=== PATIENT | female | born 1975 | race Hispanic/Latino ===

== ENCOUNTER 2021-06-11 23:16 | Emergency (ER) | payer OTHER ==
--- OUTSIDE RECORDS SUMMARY | 2021-06-11 23:19 | XMS REPORT | Continuity of Care Document ---
:1975 Author Organization [facility] t Address [address] [place] [address] Care Team Providers Name Role Phone Unavailable Unavailable Unavailable Problems Condition Condition Condition Status Onset Resolution Last Treating Co mments Source Name Details Category Date Date Treatment Clinician Date Pain, Pain, Problem Active [facility], left knee, left Me moria [facility] Primary Primary Diagnosis [facility] left knee left knee [facility] Primary Primary Problem Active [facility] oste[facility] osteoarthr Antonella kes - [facility] right knee right knee [facility] Allergies, Adverse Reactions, Alerts This patient has no known allergies or adverse reactions. Medications This patient has no known medications. Procedures This patient has no known procedures. Encounters Start End Encounter Admission Attending Care Care Encounter Source Date/Time Date/Time Type Type Clinicians Facility Department ID 2019-01-23 2019-01-23 Outpatient Kay Roberson [id number] [facility] 15:[facility]00 15[facility] ent Clinics 2019-01-16 2019-01-16 Outpatient Kay Roberson [id number] [facility] 15:30:00 15:30:00 [facility] ent [facility] 2019-01-09 2019-01-09 Outpatient Kay Roberson [id number] [facility] 15:00:00 15:00:00 t [facility] ent [facility] Results This patient has no known results.
[2021-06-12] MEDS ORDERED: ACETAMINOPHEN 500 MG TAB ONE (00:29)
[2021-06-12] MEDS ORDERED: NA CHLORIDE 0.9% 1,000 ML ONE (00:38)
[2021-06-12 00:48] LABS: Absolute Lymphocytes (CBC) 0.4 K/uL (0.7-4.9); Basophils % 0.3 % (0-1.3); Hematocrit 33.2 % (36.0-45.0); Lymphocytes % 7.4 % (15.3-44.8); RBC Red Blood Cell Count 5.21 M/uL (3.86-4.86)
[2021-06-12 00:51] LABS: Protime INR 1.04
[2021-06-12] MEDS ORDERED: NA CHLORIDE 0.9% 50 ML ONE (01:00)
[2021-06-12] MEDS ORDERED: CEFTRIAXONE 1000 MG/VIAL ONE (01:00)
[2021-06-12 01:12] LABS: Urine Blood 3+ (Negative); Urine Glucose Negative (Negative); Urine Protein 3+ (Negative); Urine Specific Gravity 1.025 (1.005-1.030)
[2021-06-12 01:20] LABS: AST/SGOT 47 U/L (15-37); BUN Blood Urea Nitrogen 10 mg/dL (7-18); Bicarbonate 22 mmol/L (21-32); Glucose Level 134 mg/dL (74-106); Potassium 3.9 mmol/L (3.5-5.1); Sodium Level 137 mmol/L (136-145)
[2021-06-12 01:21] LABS: ALT/SGPT 41 U/L (12-78); Albumin 2.4 g/dL (3.4-5.0); Alkaline Phosphatase 97 U/L (45-117); Amylase 54 U/L (25-115); Bilirubin Direct 0.1 mg/dL (0-0.2); Bilirubin Total 0.3 mg/dL (0.2-1.0); Creatine Phosphokinase 124 U/L (26-192); Lipase 193 U/L (73-393); Protein, Total 6.9 g/dL (6.4-8.2); Troponin (Emerg Dept Use Only) < 0.02 ng/mL (0.0-0.045)
[2021-06-12 01:33] LABS: Urine Bacteria >50 /HPF (<20); Urine Mucus 2+ /HPF (NONE SEEN); Urine RBC >50 /HPF (NONE SEEN)
[2021-06-12 01:34] LABS: Urine Amorphous Sediment 1+ /HPF (NONE SEEN); Urine Coarse Granular Casts FEW /LPF (NONE SEEN)
[2021-06-12 01:52] LABS: CKMB Creatine Kinase MB < 1.0 ng/mL (1.0-3.6)
[2021-06-12 01:56] LABS: Anisocytosis 2+; Blood Morphology Comment NOTED (NOT SEEN); Hypochromasia 1+; Macrocytosis 2+; Platelet Estimate ADEQ; White Blood Cell Scan OK (OK)
[2021-06-12 02:51] LABS: SARS-COV-2 RT PCR POSITIVE (NEGATIVE)
--- NOTE | 2021-06-12 02:53 | ER ---
Nurse's Notes [facility] Name: Mary Frey Age: 46 yrs Sex: Female : 1975 Arrival Date: 06/11/2021 Time: 23:19 Bed 13 Private MD: Diagnosis: Coronavirus infection, unspecified;Streptococcal pharyngitis Presentation: 06/11 23:57 Chief complaint: Patient states: she has been coughing since last week not feeling well bb tonight she was coughing so much she can't sleep has been taking OTC medications but it is not helping. Coronavirus screen: cough unrelated to allergies. Ebola Screen: No symptoms or risks identified at this time. Initial Sepsis Screen: Does the patient meet any 2 criteria? Temp <36.0*C (96.8*F)) or > 38.3*C (100.9*F). HR > 90 bpm. Yes Does the patient have a suspected source of infection? Yes: Productive cough/pneumonia. Risk Assessment: Do you want to hurt yourself or someone else? Patient reports no desire to harm self or others. Onset of symptoms was June 12, 2021. 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 - Social history:: Smoking status: Patient denies any tobacco usage or history of. Patient/guardian denies using alcohol, street drugs. Screenin:48 Abuse screen: Denies threats or abuse. Nutritional screening: No deficits noted. mk Tuberculosis screening: No symptoms or risk factors identified. Fall Risk None identified. Assessment: 01:04 General: Appears in no apparent distress. Behavior is calm, cooperative. Pain: Denies pain. Neuro: Level of Consciousness is awake, alert, obeys commands, Oriented to person, place, time, situation, Technician Trainee are equal bilaterally Gait is steady, Facial symmetry appears normal. Cardiovascular: Heart tones S1 S2 Capillary refill < 3 seconds fingers toes Pulses are 2+ in right radial artery, right dorsalis pedis artery, left radial artery and left dorsalis pedis artery Rhythm is sinus tachycardia. Cardiovascular: Rhythm is sinus rhythm. Respiratory: Airway is patent Trachea midline Respiratory effort is even, unlabored, Respiratory pattern is regular, symmetrical, tachypnea Breath sounds are clear. Respiratory: Onset: The symptoms/episode began/occurred reports being sick for \R\1 week but worse cough tonight so much so that she could not sleep. GI: Abdomen is flat, non-distended, Patient currently denies abdominal pain, vomiting. : No signs and/or symptoms were reported regarding the genitourinary system. Derm: Skin is intact, is healthy with good turgor, Skin is Skin is pink, warm \T\ dry. Skin temperature is hot. Musculoskeletal: Range of motion: intact in all extremities. 02:24 Reassessment: Patient appears in no apparent distress at this time. Patient and/or mk family updated on plan of care and expected duration. Pain level reassessed. Patient is alert, oriented x 3, equal unlabored respirations, skin warm/dry/pink. Patient denies pain at this time. 03:30 Reassessment: Patient appears in no apparent distress at this time. Patient and/or mk family updated on plan of care and expected duration. Pain level reassessed. Patient is alert, oriented x 3, equal unlabored respirations, skin warm/dry/pink. Patient denies pain at this time. Patient states feeling better. Vital Signs: 06/11 23:57 BP 119 / 67; Pulse 117; Resp 20 S; Temp 101(O); Pulse Ox 95% on R/A; Weight 129.27 kg bb (R); Height 5 ft. 4 in. (162.56 cm) (R); 06/12 01:27 BP 129 / 77; Pulse 77; Resp 18; Pulse Ox 98% on R/A; mk 02:20 Pulse 97; Resp 30; Temp 99.4; Pulse Ox 96% on R/A; mk 03:46 BP 132 / 75; Pulse 82; Resp 18; Pulse Ox 99% on R/A; mk 06/11 23:57 Body Mass Index 48.92 (129.27 kg, 162.56 cm) Michell Coma Score: 01:27 Eye Response: spontaneous(4). Verbal Response: oriented(5). Motor Response: obeys commands(6). Total: 15. 02:20 Eye Response: spontaneous(4). Verbal Response: oriented(5). Motor Response: obeys mk commands(6). Total: 15. 03:46 Eye Response: spontaneous(4). Verbal Response: oriented(5). Motor Response: obeys mk commands(6). Total: 15. ED Course: 06/11 23:19 Patient arrived in ED. 06/12 00:04 Triage completed. bb 00:04 Arm band placed on Patient placed in an exam room, on a stretcher, on pulse oximetry. bb 00:07 Jose Carlos Braun NP is PHCP. pm1 00:07 Aleksey Garcia MD is Attending Physician. pm1 00:27 Agatha Nice, RN is Primary Nurse. mk 00:54 Chest Single View XRAY In Process Unspecified. EDMS 01:00 Inserted saline lock: 20 gauge in left antecubital area, using aseptic technique. mk 01:02 Patient has correct armband on for positive identification. Allergy band placed. Placed mk in gown. Bed in low position. Call light in reach. Side rails up X 1. 03:48 No provider procedures requiring assistance completed. mk 03:48 IV discontinued, intact, bleeding controlled, No redness/swelling at site. Administered Medications: 00:28 Drug: Tylenol 1000 mg Route: PO; bb 00:58 Drug: NS 0.9% (30 ml/kg) 30 ml/kg Route: IV; Rate: bolus; Site: left antecubital; 00:58 Drug: Rocephin (cefTRIAXone) 1 grams Route: IV; Rate: calculated rate; Site: left bb antecubital; 03:35 Drug: Zofran (Ondansetron) 4 mg Route: IVP; Site: left antecubital; Outcome: 02:53 Discharge ordered by . pm1 03:48 Discharged to home mk 03:48 Condition: stable 03:48 Discharge instructions given to patient, family. 03:49 Patient left the ED. mk Addendum: 06/15/2021 07:55 Addendum: Culture Results: Positive urine culture. No further action required. Bacteria i w sensitive to prescribed antibiotic. Signatures: Dispatcher [employer] Debbie Sheppard, RN RN bb Graciela Gallardo RN RN iw Jose Carlos Braun, SENIOR SALES ENGINEER SENIOR SALES ENGINEER pm1 Janine Mercer Madeline, RN RN mk
--- NOTE | 2021-06-12 02:54 | EDPHYS ---
Physician Documentation [facility] Name: Mary Frey Age: 46 yrs Sex: Female : 1975 Arrival Date: 06/11/2021 Time: 23:19 Bed 13 Private MD: ED Physician Aleksey Garcia HPI: 06/12 00:29 This 46 yrs old Female presents to ER via Ambulatory with complaints of Cough. pm1 00:29 The patient or guardian reports cough. Onset: The symptoms/episode began/occurred 10 pm1 day(s) ago. Severity of symptoms: in the emergency department the symptoms are actually worse. Modifying factors: The symptoms are alleviated by nothing, the symptoms are aggravated by nothing. Associated signs and symptoms: Pertinent positives: fever, shortness of breath, Pertinent negatives: chest pain, diarrhea, vomiting. The patient has not experienced similar symptoms in the past. The patient has not recently seen a physician. 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 - Social history:: Smoking status: Patient denies any tobacco usage or history of. Patient/guardian denies using alcohol, street drugs. ROS: 00:29 Eyes: Negative for injury, pain, redness, and discharge, ENT: Negative for injury, pm1 pain, and discharge, Cardiovascular: Negative for chest pain, palpitations, and edema. 00:29 Abdomen/GI: Negative for abdominal pain, nausea, vomiting, diarrhea, and constipation, Back: Negative for injury and pain, MS/Extremity: Negative for injury and deformity, Skin: Negative for injury, rash, and discoloration. 00:29 Constitutional: Positive for body aches, fever. 00:29 Respiratory: Positive for cough, Negative for shortness of breath, wheezing. 00:29 All other systems are negative. Exam: 00:29 Constitutional: This is a well developed, well nourished patient who is awake, alert, pm1 and in no acute distress. Head/Face: Normocephalic, atraumatic. 00:29 Back: No spinal tenderness. No costovertebral tenderness. Full range of motion. Skin: Warm, dry with normal turgor. Normal color with no rashes, no lesions, and no evidence of cellulitis. MS/ Extremity: Pulses equal, no cyanosis. Neurovascular intact. Full, normal range of motion. 00:29 Eyes: Exam is negative for acute changes, Extraocular movements: no acute changes, Conjunctiva: no acute changes, no injection, Sclera: no acute changes, icterus, is not appreciated. 00:29 Cardiovascular: Rate: tachycardic, actual rate is 115 bpm, Rhythm: regular, Pulses: no pulse deficits are appreciated, Heart sounds: normal, normal S1and S2, Edema: is not appreciated. 00:29 Respiratory: Exam negative for acute changes, respiratory distress, shortness of breath, Breath sounds: are clear throughout. 00:29 Abdomen/GI: Inspection: obese Palpation: abdomen is soft and non-tender, in all quadrants. 00:29 Neuro: Exam negative for acute changes, Orientation: is normal, Mentation: is normal, Motor: is normal, moves all fours. Vital Signs: 06/11 23:57 BP 119 / 67; Pulse 117; Resp 20 S; Temp 101(O); Pulse Ox 95% on R/A; Weight 129.27 kg bb (R); Height 5 ft. 4 in. (162.56 cm) (R); 06/12 01:27 BP 129 / 77; Pulse 77; Resp 18; Pulse Ox 98% on R/A; mk 02:20 Pulse 97; Resp 30; Temp 99.4; Pulse Ox 96% on R/A; mk 03:46 BP 132 / 75; Pulse 82; Resp 18; Pulse Ox 99% on R/A; mk 06/11 23:57 Body Mass Index 48.92 (129.27 kg, 162.56 cm) Slemp Coma Score: 01:27 Eye Response: spontaneous(4). Verbal Response: oriented(5). Motor Response: obeys mk commands(6). Total: 15. 02:20 Eye Response: spontaneous(4). Verbal Response: oriented(5). Motor Response: obeys mk commands(6). Total: 15. 03:46 Eye Response: spontaneous(4). Verbal Response: oriented(5). Motor Response: obeys mk commands(6). Total: 15. MDM: 00:07 Patient medically screened. pm1 00:44 Data reviewed: vital signs. Data interpreted: Pulse oximetry: on room air is 95 %. pm1 Interpretation: normal. 02:48 ED course: No signs or symptoms of urinary tract infection. Pending urine culture, but pm1 specimen has some squamous contamination. Will give patient antibiotics for strep throat. . 02:51 Counseling: I had a detailed discussion with the patient and/or guardian regarding: the pm1 historical points, exam findings, and any diagnostic results supporting the discharge/admit diagnosis, lab results, radiology results, the need for outpatient follow up, to return to the emergency department if symptoms worsen or persist or if there are any questions or concerns that arise at home. 03:07 ED course: discussed abx treatment for the patient with the given strep throat, covid, pm1 chest x-ray, and urine results. Will discharge the patient home with augmentin and azithromycin. 03:13 ED course: Patient is not a candidate for regeneron. Covid symptoms going on for 10 pm1 days per patient. 06/12 00:26 Order name: Amylase, Serum 06/12 00:26 Order name: Basic Metabolic Panel 06/12 00:26 Order name: Blood Culture Adult (2) 06/12 00:26 Order name: CBC with Diff; Complete Time: :57 06/12 00:26 Order name: CPK; Complete Time: 01:57 06/12 00:26 Order name: Ckmb; Complete Time: :57 06/12 00:26 Order name: LFT's; Complete Time: :57 06/12 00:26 Order name: Lactate; Complete Time: 01:24 06/12 00:26 Order name: Lipase; Complete Time: :57 06/12 00:26 Order name: Procalcitonin; Complete Time: 01:46 06/12 00:26 Order name: Protime (+inr); Complete Time: 00:59 06/12 00:26 Order name: Ptt, Activated; Complete Time: 00:59 06/12 00:26 Order name: Troponin (emerg Dept Use Only); Complete Time: :57 06/12 00:26 Order name: Urine Microscopic Only; Complete Time: 01:37 bb 06/12 00:26 Order name: Chest Single View XRAY bb 06/12 00:26 Order name: Accucheck; Complete Time: 01:16 bb 06/12 00:26 Order name: Cardiac monitoring; Complete Time: 00:27 06/12 00:26 Order name: EKG - Nurse/Tech; Complete Time: 01:16 06/12 00:26 Order name: IV Saline Lock - Large Bore; Complete Time: 00:27 06/12 00:27 Order name: Amylase; Complete Time: 01:57 EDMS 06/12 00:27 Order name: Basic Metabolic Panel; Complete Time: 01:57 EDMS 06/12 00:27 Order name: COVID-19/FLU A+B/RSV (Document "Date of Onset" if Symptomatic); Complete bb Time: 03:08 06/12 00:27 Order name: Strep; Complete Time: 02:19 06/12 00:53 Order name: CBC Smear Scan; Complete Time: 01:57 EDMS 06/12 01:10 Order name: Urine Dipstick-Ancillary; Complete Time: 01:12 EDMS 06/12 01:35 Order name: Urine Culture EDMI 06/12 00:26 Order name: Labs collected and sent; Complete Time: 00:27 06/12 00:26 Order name: O2 Per Protocol; Complete Time: 00:27 06/12 00:26 Order name: O2 Sat Monitoring; Complete Time: 00:27 06/12 00:26 Order name: Urine Dipstick-Ancillary (obtain specimen); Complete Time: 00:58 bb Administered Medications: 00:28 Drug: Tylenol 1000 mg Route: PO; bb 00:58 Drug: NS 0.9% (30 ml/kg) 30 ml/kg Route: IV; Rate: bolus; Site: left antecubital; bb 00:58 Drug: Rocephin (cefTRIAXone) 1 grams Route: IV; Rate: calculated rate; Site: left bb antecubital; 03:35 Drug: Zofran (Ondansetron) 4 mg Route: IVP; Site: left antecubital; Disposition: 04:26 Co-signature as Attending Physician, Aleksey Garcia MD. [email or web address] Disposition Summary: 06/12/21 02:53 Discharge Ordered Location: Home pm1 Problem: new pm1 Symptoms: have improved pm1 Condition: Stable pm1 Diagnosis - Coronavirus infection, unspecified pm1 - Streptococcal pharyngitis pm1 Followup: pm1 - With: Emergency Department - When: As needed - Reason: Worsening of condition Followup: pm1 - With: Private Physician - When: 2 - 3 days - Reason: Recheck today's complaints, Continuance of care, Re-evaluation by your physician Discharge Instructions: - Discharge Summary Sheet pm1 - Strep Throat, Adult pm1 - COVID-19 pm1 - COVID-19 Frequently Asked Questions pm1 - 10 Things You Can Do to Manage Your COVID-19 Symptoms at Home - [facility] pm1 - COVID-19: Quarantine vs. Isolation - [facility] pm1 Forms: - Medication Reconciliation Form pm1 - Thank You Letter pm1 - Antibiotic Education pm1 - Prescription Opioid Use pm1 Prescriptions: - Augmentin 875-125 mg Oral Tablet - take 1 tablet by ORAL route every 12 hours for 10 days; 20 tablet; Refills: 0, pm1 Product Selection Permitted - Zithromax Z-Sher 250 mg Oral Tablet - take 1 tablet by ORAL route as directed for 5 days Day 1 - take two (2) tablets pm1 one time. Day 2, 3, 4 , 5 take one (1) tablet once daily.; 6 tablet; Refills: 0, Product Selection Permitted - Guaifenesin AC 10-100 mg/5 mL Oral Liquid - take 10 milliliters by ORAL route every 4 hours As needed; 240 milliliter; pm1 Refills: 0, Product Selection Permitted - ondansetron 4 mg Oral tablet,disintegrating - place 1 tablet by TRANSLINGUAL route every 8 hours As needed; 15 tablet; pm1 Refills: 0, Product Selection Permitted Signatures: Dispatcher [employer] Debbie Sheppard RN RN bb Jose Carlos Braun, LIBRARY SERIALS ASSISTANT LIBRARY SERIALS ASSISTANT pm1 Aleksey Garcia MD MD 7 Agatha Nice RN RN mk
[2021-06-12] MEDS ORDERED: ONDANSETRON 4 MG/2 ML VIAL ONE (03:35)
[2021-06-12 04:00] VITALS: TEMP 99.4
[2021-06-12 04:02] VITALS: BP 132/75; O2SAT 99
--- NOTE | 2021-06-12 10:02 | RAD REPORT ---
EXAM DESCRIPTION: Renu Single View06/12/2021 12:53 am CLINICAL HISTORY: Chest pain COMPARISON: none FINDINGS: Mild bilateral pulmonary opacities suspected. Heart is normal size IMPRESSION: Mild bilateral pulmonary opacities may indicate a mild pneumonia
--- NOTE | 2021-06-13 08:11 | EKG ---
Test Date: 2021-06-12 Test Time: 01:14:12 Internet Sourcer: LINDA MEASUREMENT RESULTS: Intervals: Rate: 111 ND: 128 QRSD: 78 QT: 326 QTc: 443 Sigel: P: -2 ND: 128 QRS: -5 T: -26 INTERPRETIVE STATEMENTS: Sinus tachycardia Moderate voltage criteria for LVH, may be normal variant Nonspecific T wave abnormality Abnormal ECG No previous ECG available for comparison Electronically Signed On 06-13-21 08:10:44 SENIOR CONTROLLER by Paco Sanchez
== END 2021-06-12 03:49 | disposition home or self-care (01) ==
LOC: ER 23:16
DX: U07.1 COVID-19 (principal); J02.0 Streptococcal pharyngitis
CPT/HCPCS: 93005; 87040 ×2; 87088; 85025; 87086; 80048; 36415; 82150; 82550; 85610; 80076; 87081; 83605; 85730; 87077; 87186; 84484; 82553; 83690; 84145; 0241U; 71045; 96375; 96374; 99284; J7030; J2405; 81003; 81015